=== PATIENT | male | born 1960 | race Caucasian/White ===

== ENCOUNTER 2022-08-17 10:01 | Emergency (ER) | payer BC, SELFPAY ==
[2022-08-17 10:16] VITALS: BP 154/98; PULSE 107; RESP 18; TEMP 36.6; O2SAT 98; BMI 27.4
--- NOTE | 2022-08-17 10:16 | XR_ITS ---
FINAL REPORT CLINICAL HISTORY: fall 4 days ago and landed on knee FINDINGS: LEFT KNEE Three views of the left knee were obtained. There is no acute fracture or dislocation. Visualized joint spaces are normally aligned. There are mild degenerative changes. 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 There is a moderate joint effusion. Soft tissues are unremarkable. IMPRESSION: No acute bony abnormality. Moderate joint effusion. Reviewed, Interpreted and Dictated by Guillermo Villa III, MD Transcribed by Olive Friedman Authenticated and [facility]
[2022-08-17 11:00] VITALS: BP 154/98; PULSE 107; RESP 18; TEMP 36.6; O2SAT 98; BMI 27.3
--- NOTE | 2022-08-17 11:02 | EXP.UTC ---
Discharge Plan Disposition Patient Disposition: Home, Self-Care Condition: Good Prescriptions Prescriptions: New ibuprofen [IBU] 800 mg tablet 800 mg PO Q8HP PRN (Reason: Moderate Pain) Qty: 30 0RF Referrals Follow up/Referrals: Du England JR, MD [Physician] - See instructions Provider,MD Fercho [Primary Care Provider] - See instructions Activity Restrictions/Add. Instructions Additional Instructions/Restrictions: Rest the extremity, apply ice for 15 minutes as tolerated three or four times per day, Wear the flora wrap for compression, Elevate the extremity as tolerated while you are resting. Rest your knee and keep it elevated as much time as tolerated for the next few days. Take ibuprofen for pain. I sent in a prescription to your pharmacy. Follow up with Dr. England (orthopedics). I put in a referral but you need to call his office and schedule an appointment. Follow up with your regular doctor. GO TO THE ER FOR ANY WORSENING SYMPTOMS Clinical Impressions Clinical Impression: Left knee pain, Contusion of knee, left Stand Alone Forms Stand Alone Forms: Work/School Release Discharge ED Provider: Donavan Pimentel [facility] General Stated complaint: AO@home/ pain in Lt knee Mode of Arrival: Ambulatory Source of Information: Patient Limitations: No Limitations Time Seen by Provider: 08/17/22 11:02 Description of Symptoms (Recalled from Triage Doc. by RN): pt c/o left knee pain after falling. pt states he tripped over the laundry basket. History of Present Illness Provider Complaint: He states that he tripped yesterday and came down on his left knee. Since then he has had left knee pain, swelling and stiffness. He denies any other injury. He states that walking and bearing weight on the knee makes his pain worse. Related Data Previous Rx's Medication Instructions Recorded ibuprofen 800 mg tablet (IBU) 800 mg PO Q8HP PRN Moderate Pain 08/17/22 #30 tabs Allergies Allergy/AdvReac Type Severity Reaction Status Date / Time No Known Allergies Allergy Verified 08/17/22 11:29 [facility] Disclaimer: The information contained in this section may have been updated after the patient was seen, as this information can be updated by other users. Medical History No significant past medical history Social History Smoking Status: Unknown if ever smoked alcohol intake: never current occupational status: other Travel in the last 8 weeks: None ROS Obtained: Yes All systems reviewed & no additional complaints except as documented Constitutional Constitutional: Denies chills and Denies fever(s) Integumentary/Breasts Skin/Breast: Denies redness, Denies rash and Denies wounds Neurologic Neurologic: Denies paresthesias Physical Exam General General appearance: alert and in no apparent distress Head Head exam: atraumatic, normocephalic and normal inspection Eye Eye exam: Present normal appearance, PERRL and EOMI ENT ENT exam: Present normal exam, normal oropharynx, mucous membranes moist, TM's normal bilaterally and normal external ear exam Neck Neck exam: Present normal inspection, full ROM and trachea midline; Absent meningismus or lymphadenopathy Chest Chest inspection: Present normal inspection and symmetric chest wall rise; Absent tenderness Respiratory Respiratory exam: Present normal lung sounds bilaterally; Absent respiratory distress Cardiovascular Cardiovascular exam: Present regular rate and normal rhythm; Absent JVD Abdominal Exam Abdominal exam: Present soft and normal bowel sounds; Absent distention, tenderness or guarding Extremities Exam Extremities exam: Present normal capillary refill; Absent calf tenderness Expanded Lower Extremity Exam Left: Hip/Pelvis exam: Present normal inspection and full ROM; Absent tenderness Upper leg exam: Present normal
[2022-08-17 11:47] VITALS: BP 154/98; PULSE 107; RESP 18; TEMP 36.6; O2SAT 98
== END 2022-08-17 11:48 | disposition home or self-care (01) ==
LOC: ER 10:14 → UTC 10:15
PROVIDERS: Emergency Provider Nurse Practitioner Family
DX: S80.02XA Contusion of left knee, initial encounter (principal); W01.0XXA Fall on same level from slipping, tripping and stumbling without subsequent striking against object, initial encounter
CPT/HCPCS: 73562; 99212; G0463

== ENCOUNTER 2024-09-01 14:39 | Emergency (ER) | payer BC, SELFPAY ==
[2024-09-01 14:45] VITALS: BP 165/97; PULSE 102; RESP 17; TEMP 36.6; O2SAT 96; BMI 33.9
--- NOTE | 2024-09-01 14:59 | EXP.UTC ---
Discharge Plan Disposition Patient Disposition: Home, Self-Care Condition: Good Prescriptions Prescriptions: No Action ibuprofen [IBU] 800 mg tablet 800 mg PO Q8HP PRN (Reason: Moderate Pain) Qty: 30 0RF Referrals Follow up/Referrals: Provider,Referral, [Primary Care Provider] - See instructions Activity Restrictions/Add. Instructions Additional Instructions/Restrictions: *Monitor Temp, Over the counter Motrin or Tylenol as directed/as needed Tylenol every 4 hours and Motrin every 6 hours (as long as your family doctor has told you that you can take it) for fever or pain. and straight to ER if unable to lower temp less than 101.0 after medication given *Warm salt water gargles may help to soothe the throat *Throat Lozenges? *Warm fluids like tea with honey may help to soothe the throat? *Sleep elevated *Humidifier/Vaporizer Your throat swab was sent for culture. Those results are typically sent to your primary care. Be sure to follow up in 2-3 days with your family doctor/primary care physician if no improvement so they can review those result and treat if necessary. If you don?t have a primary care doctor, I recommend you get one but in the mean time, you will have to return to a walk in clinic Follow up IMMEDIATELY for new or worsening symptoms or no Noticeable improvement over the next 48-72 hours. 911 for difficulty breathing or swallowing Clinical Impressions Clinical Impression: Sore throat (viral) Stand Alone Forms Stand Alone Forms: Work/School Release Instructions Patient Instructions: Sore Throat, DI for Viral Upper Respiratory Infection -- Adult Print Language Print Language: German Discharge ED Provider: Felisa Barker [facility] [place] H[place] General Stated complaint: sore throat, headache Mode of Arrival: Ambulatory Source of Information: Patient Limitations: No Limitations Time Seen by Provider: 09/01/24 14:59 Description of Symptoms (Recalled from Triage Doc. by RN): PATIENT C/O SORE THROAT, NAUSEA, HOT FLASHES, AND HEADACHE THAT STARTED THIS MORNING HEENT Symptoms (Recalled from RN notes): Yes Resp Symptoms (Recalled from RN notes): No Skin Symptoms (Recalled from RN notes): No MS Symptoms (Recalled from RN notes): No Functional Status (Recalled from RN notes): WNL History of Present Illness Provider Complaint: Patient states that he has been in [place] helping his brother and thinks he may have picked up strep throat, States that he has been having sore throat, headache, nausea and chills since this morning and wasnt able to go to work so he wanted to get checked for strep throat and get a note for work Related Data Allergies Allergy/AdvReac Type Severity Reaction Status Date / Time No Known Allergies Allergy Verified 08/17/22 11:29 Worker's Comp Is this a Worker's Comp case?: No PFSH [facility] Disclaimer: The information contained in this section may have been updated after the patient was seen, as this information can be updated by other users. Medical History No significant past medical history Social History (Updated 08/17/22 @ 16:35 by Donavan Pimentel APRN) Smoking Status: Unknown if ever smoked alcohol intake: never current occupational status: other Travel in the last 8 weeks: None Have you lived/traveled outside [place] in past 30 days?: No Contact w/someone who lives/traveled outside [place] past 30 days?: No Exposure to someone with infectious disease in past 14 days?: No Do you have a fever (greater than 100.4 F or 38 C)?: No Have you tested positive for COVID-19: No Exposed to someone with COVID-19 in past 14 days?: No Do you have a sore throat?: No Do you have a cough?: No Do you have any weakness?: No Do you have any diarrhea?: No Are you experiencing any unusual bleeding?: No Do you have any muscle aches/pain?: No Do you have any abdominal pain?: No Are you experiencing loss of taste or smell?: No ROS Obtained: Yes All systems reviewed & no additional complaints except as documented and Yes Systems reviewed as appropriate & no additional complaints except as documented Constitutional Constitutional: Reports system reviewed and no additional complaints, except as documented, Reports as per HPI, Reports body ache, Reports chills and Reports headache(s) ENT Ears, Nose, Mouth, and Throat: Reports system reviewed and no additional complaints, except as documented, Reports as per HPI, Reports headache(s) and Reports sore throat Cardiovascular Cardiovascular: Reports system reviewed and no additional complaints, except as documented and Reports as per HPI Respiratory Respiratory: Reports system reviewed and no additional complaints, except as documented and Reports as per HPI Gastrointestinal Gastrointestingal: Reports system reviewed and no additional complaints, except as documented and as per HPI Neurologic Neurologic: Reports headache(s) Physical Exam General General appearance: alert and in no apparent distress ENT ENT exam: Present mucous membranes moist Expanded ENT Exam Nose exam: Absent sinus tenderness Throat exam: Present tonsillar erythema; Absent tonsillomegaly or tonsillar exudate Respiratory Respiratory exam: Present normal lung sounds bilaterally; Absent respiratory distress or wheezes Cardiovascular Cardiovascular exam: Present regular rate, normal rhythm and normal heart sounds Abdominal Exam Abdominal exam: Present soft and normal bowel sounds; Absent distention or tenderness Neurological Exam Neurological exam: Present alert, oriented X3 and normal gait Medical Decision Making Medical Records Screening: Per USPSTF and CDC recommendations, given the prevalence of disease in our region, it is our hospital?s policy to screen for HIV and viral Hepatitis for all patients aged 18 and over and those with ongoing risk factors. Yoel Inquiry Pt receiving controlled substance: No Yoel was queried for this patient: No Vital Signs: 09/01/24 14:45 Temperature 97.9 F Temperature Source Oral Pulse Rate [Left Brachial] 102 H Respiratory Rate 17 Blood Pressure [Left Arm] 165/97 H Blood Pressure Mean [Left Arm] 119 Blood Pressure Source [Left Arm] Automatic Cuff Blood Pressure Position [Left Arm] Sitting 02 Sat by Pulse Oximetry 96 Oxygen Delivery Method Room Air Lab Data Lab results reviewed: Yes I reviewed the patient's lab results.
[2024-09-01 15:08] LABS: UTC Strep Screen (Rapid) Negative (Negative)
[2024-09-01 15:09] LABS: UTC Influenza A Antigen Negative (Negative); UTC Influenza B Antigen Negative (Negative)
[2024-09-01 15:13] VITALS: BP 165/97; PULSE 102; RESP 17; TEMP 36.6; O2SAT 96
== END 2024-09-01 15:15 | disposition home or self-care (01) ==
PROVIDERS: Emergency Provider Nurse Practitioner
DX: J02.8 Acute pharyngitis due to other specified organisms (principal)
CPT/HCPCS: 87804; 87880; 99212; G0381